=== PATIENT | male | born 1980 | race Hispanic/Latino ===

== ENCOUNTER 2024-04-07 13:43 | Emergency (ER) | payer SELFPAY ==
[2024-04-07] MEDS ORDERED: Acetaminophen 325 MG TAB ONE (17:14)
== END 2024-04-07 17:26 | disposition home or self-care (01) ==
LOC: ERS 13:43
DX: M79.605 Pain in left leg (principal); W21.05XA Struck by basketball, initial encounter; Y93.67 Activity, basketball; Z87.891 Personal history of nicotine dependence